=== PATIENT | male | born 1945 | race Caucasian/White ===

== ENCOUNTER 2018-07-31 07:46 | Day surgery (SDC) | payer OTHER ==
[2018-07-31] MEDS: NS 1,000 ML IV (06:00)
[~2018-07-31 07:46] MED LIST: PROPOFOL 200 MG/20 ML VIAL As Ordered
[2018-07-31] MEDS ORDERED: LIDOCAINE 2% INJ 100 MG/5 ML SDV (FOR ANES.) As Ordered (08:55)
== END 2018-07-31 09:38 | disposition home or self-care (01) ==
LOC: M OPP 07:46
DX: Z12.11 Encounter for screening for malignant neoplasm of colon (principal); K64.0 First degree hemorrhoids; K57.30 Diverticulosis of large intestine without perforation or abscess without bleeding; D12.2 Benign neoplasm of ascending colon
CPT/HCPCS: 45380

== ENCOUNTER → 2024-06-09 | Outpatient (CLI) | payer OTHER ==
[~2024-06-09] MED LIST changes: +ACET1TAB55 PO; +ASPI-255 PO; +ASPI81TA26 PO; +CRES10TA PO; +ELIQ5TAB PO; +IBUP-1022 PO; +METO25TA4 PO; +PANT40TA29 PO; -PROPOFOL 200 MG/20 ML VIAL As Ordered; +RANO500T2 PO; +ROSU40TA81 PO; +VITA50005 PO
== END ==
LOC: M PLARAD 10:03
PROVIDERS: ATTEND Nurse Practitioner Family
DX: D02.20 Carcinoma in situ of unspecified bronchus and lung (principal); C34.32 Malignant neoplasm of lower lobe, left bronchus or lung
CPT/HCPCS: 78815; A9552

== ENCOUNTER → 2024-07-08 | Outpatient (CLI) | payer OTHER ==
[~2024-07-08] MED LIST changes: +LIDOCAINE 1% MDV 20ML VIAL As Ordered ONE
[2024-07-08 13:20] VITALS: BP 126/70; TEMP 97.9; O2SAT 92
== END ==
LOC: M IRPRO 12:20
PROVIDERS: ATTEND Internal Medicine Medical Oncology
DX: C34.90 Malignant neoplasm of unspecified part of unspecified bronchus or lung (principal)

== ENCOUNTER → 2024-09-09 | Outpatient (REF) | payer OTHER ==
[~2024-09-09] MED LIST changes: -LIDOCAINE 1% MDV 20ML VIAL As Ordered ONE
== END ==
LOC: M LAB REF 14:53
PROVIDERS: ATTEND Surgery
DX: R59.0 Localized enlarged lymph nodes (principal)

== ENCOUNTER → 2024-10-03 | Outpatient (CLI) | payer OTHER ==
[~2024-10-03] MED LIST changes: +FERR325T3 PO
== END ==
LOC: M ONCR 10:00
PROVIDERS: ATTEND General Practice
DX: C34.32 Malignant neoplasm of lower lobe, left bronchus or lung (principal); C82.40 Follicular lymphoma grade IIIb, unspecified site; Z87.891 Personal history of nicotine dependence; Z80.1 Family history of malignant neoplasm of trachea, bronchus and lung; Z79.01 Long term (current) use of anticoagulants; Z79.899 Other long term (current) drug therapy

== ENCOUNTER 2024-10-09 09:24 | Outpatient (RCR) | payer OTHER | END 2024-10-17 | LOC: M ONCR 09:24 | PROVIDERS: ATTEND General Practice | DX: Z51.0 Encounter for antineoplastic radiation therapy (principal); C34.32 Malignant neoplasm of lower lobe, left bronchus or lung ==

== ENCOUNTER → 2024-10-13 | Outpatient (CLI) | payer MEDICARE, OTHER ==
[~2024-10-13] MED LIST changes: +PROHANCE 279.3MG/ML 15ML VIAL As Ordered ONE
== END ==
LOC: M RAD 12:36
PROVIDERS: ATTEND Internal Medicine Medical Oncology
DX: C34.90 Malignant neoplasm of unspecified part of unspecified bronchus or lung (principal)
CPT/HCPCS: 70553; A9576

== ENCOUNTER 2024-11-06 14:23 | Outpatient (RCR) | payer OTHER ==
[~2024-11-06 14:23] MED LIST changes: -PROHANCE 279.3MG/ML 15ML VIAL As Ordered ONE
== END 2024-11-14 ==
LOC: M ONCR 14:23
PROVIDERS: ATTEND General Practice
DX: Z51.0 Encounter for antineoplastic radiation therapy (principal); C34.32 Malignant neoplasm of lower lobe, left bronchus or lung

== ENCOUNTER → 2024-11-14 | Outpatient (CLI) | payer OTHER | LOC: M CARPUL 08:31 | PROVIDERS: ATTEND Internal Medicine Medical Oncology | DX: C34.90 Malignant neoplasm of unspecified part of unspecified bronchus or lung (principal); Z79.69 Long term (current) use of other immunomodulators and immunosuppressants; I36.1 Nonrheumatic tricuspid (valve) insufficiency ==

== ENCOUNTER → 2024-11-18 | Outpatient (CLI) | payer OTHER ==
[~2024-11-18] MED LIST changes: +ceFAZolin SOD 2 GM in IV 1 EA IV ONE
[2024-11-18 12:40] VITALS: TEMP 97.8
[2024-11-18] MEDS: NS (Normal Saline) 0.9% 1,000 ML IV SCH (13:40)
[2024-11-18] MEDS: ceFAZolin SOD 2 GM IV ONCE IV ONE (13:40)
[2024-11-18] MEDS: MIDAZOLAM INJ 2MG/2ML VIAL IV PRN (13:45)
[2024-11-18] MEDS: fentaNYL 100 MCG/2 ML INJECTION IV PRN (13:45)
[2024-11-18] MEDS: LIDOCAINE 1% MDV 20ML VIAL SC ONE (14:01)
[2024-11-18 15:00] VITALS: BP 137/74; O2SAT 97
== END ==
LOC: M IRPRO 12:23
PROVIDERS: ATTEND Internal Medicine Medical Oncology
DX: C34.90 Malignant neoplasm of unspecified part of unspecified bronchus or lung (principal)
CPT/HCPCS: 36561; 99152; 99153; C1894; J0690; J1642; J2250; J3010

== ENCOUNTER → 2024-11-25 | Outpatient (CLI) | payer OTHER ==
[~2024-11-25] MED LIST changes: +LIDOCAINE 1% MDV 20ML VIAL As Ordered ONE; -ceFAZolin SOD 2 GM in IV 1 EA IV ONE
[2024-11-25 13:00] VITALS: TEMP 98
[2024-11-25] MEDS: MIDAZOLAM INJ 2MG/2ML VIAL IV PRN (14:12)
[2024-11-25] MEDS: LIDOCAINE 1% MDV 20ML VIAL SC ONE (14:12)
[2024-11-25] MEDS: fentaNYL 100 MCG/2 ML INJECTION IV PRN (14:12)
[2024-11-25] MEDS: NS (Normal Saline) 0.9% 1,000 ML IV SCH (14:13)
[2024-11-25 14:20] VITALS: BP 125/76; O2SAT 99
[2024-11-25 14:35] LABS: BASO # 0.1 10^3/uL (0.0-0.2); BASO % 0.9 % (0.0-1.0); EOS # 0.2 10^3/uL (0.0-0.5); EOS % 2.9 % (0.0-3.0); HEMATOCRIT 23.6 % (42.0-52.0); LYMPH # 1.2 10^3/uL (1.5-5.0); LYMPH % 15.3 % (24.0-44.0); MEAN CORPUSCULAR HGB CONC 28.8 g/dl (32.0-36.5); MEAN CORPUSCULAR VOLUME 90.1 fl (80.0-96.0); MONO # 0.8 10^3/uL (0.0-0.8); MONO % 9.9 % (2.0-8.0); NEUTROPHILS # 5.7 10^3/uL (1.5-8.5); NEUTROPHILS % 70.4 % (36.0-66.0); PLATELET COUNT, AUTOMATED 409 10^3/uL (150-450); RED BLOOD COUNT 2.62 10^6/uL (4.30-6.10); WHITE BLOOD COUNT 8.1 10^3/uL (4.0-10.0)
[2024-11-25 14:38] LABS: HEMOGLOBIN 6.8 g/dl (13.5-17.5)
== END ==
LOC: M IRPRO 12:41
PROVIDERS: ATTEND Internal Medicine Medical Oncology
DX: C34.90 Malignant neoplasm of unspecified part of unspecified bronchus or lung (principal); D64.9 Anemia, unspecified
CPT/HCPCS: 36415; 38222; 77012; 85025; 88300; 88305; 88311; 88313; 99152; 99153; J2250; J3010